=== PATIENT | female | born 1940 | race Caucasian/White ===

== ENCOUNTER → 2016-10-31 | Day surgery (SDC) | payer MEDICARE, BC ==
[~2016-10-31] VITALS: Ht 157.5 cm; Wt 111.1 kg
[~2016-10-31] MED LIST: 8 HO650T2 PO; ALEV220C2 PO; BUPIVACAINE HCL 0.25% 30 ML VIAL As Ordered ONE; BUPIVACAINE LIPOSOME/PF 1.3% 20 ML VIAL (13.3MG/ML)(EXPAREL) As Ordered ONE; BUPIVACAINE/EPIN 0.25% 30 ML VIAL As Ordered ONE; CALC500T49 PO; CRAN400C PO; GLYCOPYRROLATE INJ 0.2 MG/ML 2 ML VIAL As Ordered ONE; IPRATROPIUM 0.5MG/ALBUTEROL 2.5MG INH SOL UD 3ML (DUONEB)(J7620) As Ordered ONE; IPRATROPIUM 0.5MG/ALBUTEROL 2.5MG INH SOL UD 3ML (DUONEB)(J7620) NEB ONE; KETOROLAC 30 MG/ML VIAL (J1885) IV PRN; KETOROLAC 60 MG/2 ML VIAL (J1885) As Ordered ONE; LIDOCAINE 2% INJ 100 MG/5 ML SDV (FOR ANES.) As Ordered ONE; LOSA100T36 PO; LR 1,000 ML IV ONE; LR 1,000 ML IV SCH; MAGN1CAP PO; METOCLOPRAMIDE INJ 10MG/2ML VIAL (J2765) As Ordered ONE; METOCLOPRAMIDE INJ 10MG/2ML VIAL (J2765) IV PRN; MIDAZOLAM INJ 2 MG/2 ML VIAL (J2250) As Ordered ONE; NEOSTIGMINE 1MG/ML 5 ML SYRINGE (J2710) As Ordered ONE; NORCO, ANEXSIA 5/325MG TABLET (HYDROcodone/ACETAMINOPHEN) PO PRN; ONDANSETRON 4MG/2ML VIAL (J2405) As Ordered ONE; ONDANSETRON 4MG/2ML VIAL (J2405) IV PRN; PERCOCET 5MG/325MG TAB PO PRN; POTA99TA PO; PROBCAP4 PO; PROPOFOL 200 MG/20 ML VIAL As Ordered ONE; ROCURONIUM BROMIDE 50 MG/5 ML VIAL/SYRINGE As Ordered ONE; VITA500046 PO; VITATAB11 PO; ceFAZolin SOD 1 GM in D5W MINI-BAG PLUS 50 ML IV ONE; ePHEDrine SULFATE 25 MG/5 ML(5MG/ML) SYRINGE As Ordered ONE; fentaNYL 100 MCG/2 ML INJECTION (J3010) IV PRN; fentaNYL 250 MCG/5 ML INJECTION (J3010) As Ordered ONE; hydrALAZINE INJ 20 MG/ML VIAL As Ordered ONE
[2016-10-31 12:10] VITALS: BP 143/70
--- NOTE | 2016-11-07 23:54 | RO ---
DATE OF PROCEDURE: 10/31/2016 PREOPERATIVE DIAGNOSIS: Recurrent incisional hernia. POSTOPERATIVE DIAGNOSIS: Recurrent incisional hernia. PROCEDURE: Laparoscopic incisional hernia repair with mesh. SURGEON: Dr. Jey Clark [place] WINDER: ANESTHESIA: General endotracheal anesthesia. ESTIMATED BLOOD LOSS: Minimal. FLUIDS: Crystalloid. Mesh placed was with Ventralight (6 x 8 inch oval). DESCRIPTION OF PROCEDURE: The patient was brought to the operating room, was given general anesthesia. After adequate anesthesia and preoperative antibiotics were given, the patient was prepped and draped in the usual sterile fashion. Next, a right lower quadrant/right-sided abdominal wall incision was made with a skin knife. The patient was placed in a little bit of a head-up position as well as left side down and Veress needle was placed into the peritoneal cavity, insufflated to 15 mm of pressure. Dilating 5 mm trocar was placed at this time and using a 45-degree scope, right lower quadrant 5 mm trocar was placed. There were numerous adhesions along the midline that were taken down by Harmonic scalpel. There were several adhesions that were small bowel that was adherent to the anterior abdominal wall. Many of these adhesions eventually were taken down using sharp dissection instead of the Harmonic scalpel, given that the bowel was abutting the abdominal wall. Eventually, after a significant amount of dissection that was performed, because of multiple adhesions both superior to the umbilicus and inferior to the umbilicus, the hernia contents were delivered out of the hernia sac. Once this was performed, there was evidence of a larger hernia inferior to the umbilicus and one just above the umbilicus, and then there was a great deal of diastasis up above the umbilicus. But the primary hernias were right at the umbilicus, as stated previously. Once these were identified and multiple adhesions were taken down, the 12 mm trocar was placed at the umbilicus. The Ventralight was brought through this and then tacked into place using SecureStraps. Two SecureStraps were required to place tacks circumferentially and in the midportion along the rectus muscle bilaterally. An additional 5 mm trocar was placed on the left upper quadrant prior to placement of the mesh. Once the mesh was in the appropriate position, the balloon was desufflated and the balloon support structure was brought out through the 5 mm trocar sites. The operative field, the mesh was reevaluated again and revealed no bleeding and was clean and dry. The mesh had been placed with the pressure up at 10 mm instead of the typical 15 mm of pressure. Additional Exparel was placed in the fascia circumferentially. The patient was awakened, extubated, brought to the recovery room awake, alert, hemodynamically stable. Sponge and needle counts correct times two.
== END | disposition home or self-care (01) ==
LOC: M SDC 05:46
PROVIDERS: ATTEND Surgery
DX: K43.2 Incisional hernia without obstruction or gangrene (principal); I10 Essential (primary) hypertension; N28.1 Cyst of kidney, acquired; T88.59XD Other complications of anesthesia, subsequent encounter; K59.00 Constipation, unspecified; K21.9 Gastro-esophageal reflux disease without esophagitis; R06.02 Shortness of breath; R29.898 Other symptoms and signs involving the musculoskeletal system; Z88.2 Allergy status to sulfonamides; Z91.048 Other nonmedicinal substance allergy status; Z79.899 Other long term (current) drug therapy; Z90.710 Acquired absence of both cervix and uterus
CPT/HCPCS: 49656; C1781; J0690; J1885; J2250; J2405; J2710; J2765; J3010